=== PATIENT | male | born 1955 | race Caucasian/White ===

== ENCOUNTER → 2016-11-08 | Outpatient (CLI) | payer BC, OTHER ==
[~2016-11-08] MED LIST: ALBU17AE23 IH; CEPH500C PO; CICL6.1H4 IH; OXYC-12 PO
--- NOTE | 2016-11-08 13:30 | Diagnostic Imaging Report ---
PROCEDURE: CT abdomen and pelvis without contrast. TECHNIQUE: Multiple contiguous axial images were obtained through the abdomen and pelvis without the use of intravenous contrast. INDICATION: History of prostate cancer. COMPARISON: 10/29/2013. FINDINGS: Included views of the lung bases are clear. CT abdomen: There is asymmetric left renal atrophy. This has developed since the prior exam. Otherwise, the kidneys, spleen, pancreas, adrenal glands, and liver have an unremarkable noncontrast CT appearance. Small bowel loops are nondistended. Normal appendix is identified. There is no loculated fluid collection, free fluid, nor free air within the antrum. No abnormal mesenteric or retrotracheal adenopathy is seen. Bony structures show no acute abnormalities. There is mild calcified aortic and arterial atherosclerosis. CT pelvis: Urinary bladder is unopacified. No calculi are seen within urinary bladder. There is no loculated fluid collection, free fluid, nor free air within the pelvis. No abnormal lymph nodes are seen. Bony structures show no acute abnormalities. IMPRESSION: 1. Interval development of asymmetric left renal atrophy. 2. Otherwise, unremarkable CT abdomen and pelvis. Dictated by: Dictated on workstation # [id number]
--- NOTE | 2016-11-08 15:53 | Diagnostic Imaging Report ---
INDICATION: Prostate cancer EXAM: Whole body bone scan TECHNIQUE: 23.7 mCi of technetium 99m MDP was given intravenously. Whole body bone scan was obtained after an appropriate delay. FINDINGS: There is increased activity in the right first MTP joint which is likely degenerative or inflammatory. There is activity in both kidneys. There is no increased uptake in the skeletal system that is considered suspicious for metastatic disease. IMPRESSION: Whole body bone scan does not show any evidence for metastatic disease. Dictated by: Dictated on workstation # [id number]
== END ==
LOC: CARD 12:06
PROVIDERS: ATTEND Urology
DX: C61 Malignant neoplasm of prostate (principal); N26.1 Atrophy of kidney (terminal)
CPT/HCPCS: 74176; 78306

== ENCOUNTER 2016-12-14 15:00 | Outpatient (CLI) | payer BC | END 2016-12-14 15:30 | disposition home or self-care (01) | LOC: SLEEP 15:00 | PROVIDERS: ATTEND Nurse Practitioner Family | DX: G47.10 Hypersomnia, unspecified (principal); G47.50 Parasomnia, unspecified ==

== ENCOUNTER 2017-01-09 11:14 | Outpatient (RCR) | payer BC | END 2017-01-09 14:12 | disposition home or self-care (01) | DX: M54.2 Cervicalgia (principal) ==

== ENCOUNTER 2020-11-12 05:30 | Outpatient (RCR) | payer BC ==
[~2020-11-12] VITALS: Ht 177.8 cm; Wt 77.7 kg
[~2020-11-12 05:30] MED LIST changes: +ATOR10TA66 PO; +CHLO25TA22 PO; +DILT300C36 PO; +FLUT1BLS11 IH; +LOSA100T57 PO; +MONT10TA21 PO; +OMEP40CA6 PO
== END 2020-11-12 09:06 | disposition home or self-care (01) ==
LOC: PREOP 05:30
PROVIDERS: ATTEND Internal Medicine
DX: Z01.818 Encounter for other preprocedural examination (principal)
CPT/HCPCS: 87635

== ENCOUNTER → 2020-11-13 | Day surgery (SDC) | payer BC ==
--- NOTE | 2020-11-05 06:28 | HISTORY AND PHYSICAL ---
DATE OF SERVICE: COLONOSCOPY HISTORY AND PHYSICAL HISTORY OF PRESENT ILLNESS: The patient is a 65-year-old white male seen for yearly wellness evaluation. He had last accomplished screening colonoscopy 11 years ago, at which time there is no reported evidence for neoplasia. He is being set up for repeat screening colonoscopy. He is fully vaccinated for COVID. He reports that he has been generally feeling well. He is 10 years out from diagnosis of prostate cancer with no evidence for recurrence, status post prostatectomy. He has history of hypertension and no known history of cardiovascular disease. He has no past smoking history and no significant alcohol intake. He walks several miles on a daily basis with no past history of cardiovascular disease. He does have a history of mild intermittent asthma, well controlled on inhaler therapy with no significant wheezing, emergency room visits, cough or shortness of breath. PHYSICAL EXAMINATION: GENERAL: Reveals a white male who appears to be in no acute distress. VITAL SIGNS: Weight stable at 171.4 pounds, blood pressure 130/80. HEENT: Unremarkable. CHEST: Clear. CARDIOVASCULAR: Reveals regular rate and rhythm without murmur, S3 or S4. ABDOMEN: Soft, supple without mass, organomegaly or tenderness. EXTREMITIES: Reveal no cyanosis, clubbing or edema. SKIN: Evaluation reveals no suspicious nevi. FAMILY HISTORY: Father of pancreatic cancer at the age of 60 with alcohol use disorder. Mother is still living at 91 in reasonable health. He recently had a brother, he developed post-COVID cardiomyopathy, but is recovering nicely. ASSESSMENT AND PLAN: The patient is set up for screening colonoscopy, deemed to be of average risk. Prep instructions were given and questions were answered. Otherwise, stable wellness evaluation, good health habits, controlled asthma, hypertension and no evidence for recurrence of prostate cancer 10 years out from prostatectomy. We will see him back in 6 months. Job ID: [id number] DocumentID: [id number] Dictated Date: 10/28/2020 16:13:37 Skein Winder Date: 10/28/2020 16:48:17 Dictated By: CÉSAR FERGUSON MD
[~2020-11-13] VITALS: Ht 177.8 cm; Wt 77.7 kg
[~2020-11-13] MED LIST changes: +HURRICAINE EXT TUBE (BENZOCAINE) XX PRN; +LACTATED RINGERS 1,000 ML IV ONE; +LACTATED RINGERS 1,000 ML IV STA; +PROPOFOL INJECTION 50 ML IV ONE
[2020-11-13 08:21] VITALS: BP 166/95
[2020-11-13] MEDS: LIDOCAINE JELLY 2% 6 ML SYRINGE MM PRN ×2 (09:40→09:50)
[2020-11-13 10:10] VITALS: BP 108/62
[2020-11-13 10:15] VITALS: BP 117/66
[2020-11-13 10:20] VITALS: BP 125/78
--- NOTE | 2020-11-13 10:33 | Anesthesia-General Post-Op ---
MAC Patient Condition Mental Status/LOC: Same as Preop Cardiovascular: Satisfactory Nausea/Vomiting: Absent Respiratory: Satisfactory Pain: Controlled Complications: Absent Post Op Complications Complications None Follow Up Care/Instructions Patient Instructions None needed. Anesthesiology Discharge Order Discharge Order Patient is doing well, no complaints, stable vital signs, no apparent adverse anesthesia problems. No complications reported per nursing. URSULA NAVA CRNA Nov 13, 2020 10:33
[2020-11-13 10:45] VITALS: BP 155/96
[2020-11-13 10:49] VITALS: BP 155/96
--- NOTE | 2020-11-13 15:52 | OPERATIVE REPORT ---
DATE OF SERVICE: PANENDOSCOPY SUMMARY PRIMARY CARE PHYSICIAN: César Ferguson MD. INDICATION: EGD was done for evaluation of reflux symptoms at times refractory to PPI therapy with screening colonoscopy. DESCRIPTION OF PROCEDURE: The patient was placed in the left lateral decubitus position. The endoscope was inserted into the oral cavity and under direct visualization, the esophagus was intubated. The endoscope was passed down the esophagus through stomach in the second portion of the duodenum. Careful inspection was made as the endoscope was withdrawn. FINDINGS: The posterior pharynx, epiglottis and true and false vocal folds were unremarkable to visual inspection. The proximal, mid and distal esophagus were unremarkable, say for a small hiatal hernia. There was no evidence to suggest erosive esophagitis or overt Chapin's change. Biopsies were obtained from the GE junction and submitted for histopathology. The cardia, fundus, antrum, pylorus, pyloric channel, duodenal bulb and second portion of the duodenum were unremarkable. ASSESSMENT: Small hiatal hernia was present without evidence for erosive esophagitis or gross evidence to suggest Chapin's. Biopsies from the Z line are pending at the time of dictation. No other abnormalities noted on ED evaluation. COLONOSCOPY: We then proceeded with colonoscopy. Digital evaluation was performed. There was surgical absence of the prostate with no palpable abnormalities noted in the prostate bed or elsewhere in the anal canal or distal rectal vault. Anal sphincter tone was normal and the perianal reflexes intact. The colonoscope was then inserted into the rectum and under direct visualization advanced to the cecum. The cecum was identified by identification of ileocecal valve and cecal strap. Photographic documentation was obtained. Quality of the prep was good. FINDINGS: There was no evidence for internal or external hemorrhoids and the rectum was unremarkable. Mild diverticular disease confined to the sigmoid colon was present without evidence for diverticulitis. No other sigmoid colonic abnormalities were appreciated. The descending colon and splenic flexure were unremarkable. Present in the distal transverse colon as well as proximal ascending colon were two small sessile 3 to 4 mm polyps, both were biopsied and ablated and submitted for histopathology. There was no subsequent blood loss. The cecum and the colon were unremarkable. ASSESSMENT: Two diminutive polyps were removed today, one from the distal transverse colon and one from the proximal ascending colon. As long as there are no surprises on histopathology report, I would just be advocating consideration for repeat screening colonoscopy in 10 years. Mild diverticular disease confined to the sigmoid colon was present without evidence for diverticulitis. Job ID: [id number] DocumentID: [id number] Dictated Date: 11/13/2020 10:55:07 Maintenance Advisor Date: 11/13/2020 15:51:44 Dictated By: CÉSAR FERGUSON MD MTDD
== END ==
LOC: ENDO 08:01
PROVIDERS: ATTEND Internal Medicine
DX: Z12.11 Encounter for screening for malignant neoplasm of colon (principal); D12.2 Benign neoplasm of ascending colon; K63.5 Polyp of colon; K21.00 Gastro-esophageal reflux disease with esophagitis, without bleeding; I10 Essential (primary) hypertension; K44.9 Diaphragmatic hernia without obstruction or gangrene; K57.30 Diverticulosis of large intestine without perforation or abscess without bleeding; E78.5 Hyperlipidemia, unspecified; Z85.46 Personal history of malignant neoplasm of prostate; Z90.79 Acquired absence of other genital organ(s); Z79.899 Other long term (current) drug therapy; Z80.0 Family history of malignant neoplasm of digestive organs
CPT/HCPCS: 88305; 88312

== ENCOUNTER → 2022-01-12 | Outpatient (CLI) | payer BC, MEDICARE ==
[~2022-01-12] MED LIST changes: -HURRICAINE EXT TUBE (BENZOCAINE) XX PRN; -LACTATED RINGERS 1,000 ML IV ONE; -LACTATED RINGERS 1,000 ML IV STA; -PROPOFOL INJECTION 50 ML IV ONE
--- NOTE | 2022-01-12 18:51 | Diagnostic Imaging Report ---
PROCEDURE: MRI lumbar spine, without contrast, 01/12/2022. TECHNIQUE: Multiplanar, multisequence MRI of the lumbar spine was performed without contrast. INDICATION: Chronic low back pain. COMPARISON: None. FINDINGS: There is normal height and alignment of the vertebral bodies. No acute fracture is appreciated. Tip of the conus unremarkable in appearance and location. T12-L1: There is disc desiccation with a broad-based bulging disc. There is bilateral facet hypertrophy. There is no significant central stenosis. Neural foramina patent. L1-L2: There is intervertebral disc space narrowing, disc desiccation with a left paracentral broad-based bulging disc. There is bilateral facet hypertrophy. There is moderate central stenosis with narrowing of the left lateral recess, likely encroaching the transiting left nerve root. Moderate left and [id number] right neural foraminal stenosis is noted. There is heterogeneity within the central canal posterior to the L1-L2 and L2-L3 levels, likely crowding of the nerve root secondary to the central narrowing. A focal arachnoiditis felt to be less likely but correlate with symptoms. L2-L3: There is intervertebral disc space narrowing, disc desiccation with a broad-based bulging disc. There is bilateral facet and ligamentum flavum hypertrophy. There is moderate to severe central stenosis with narrowing of the lateral recesses bilaterally. There is moderate to severe bilateral neural foraminal stenosis. L3-L4: There is intervertebral disc space narrowing, disc desiccation and a left paracentral broad-based disc extrusion. There is bilateral facet and ligamentum flavum hypertrophy with severe central stenosis. There is marked narrowing of the lateral recesses, left worse than right. There is severe left and moderate to severe right neural foraminal stenosis. L4-L5: There is intervertebral disc space narrowing and disc desiccation with a broad-based bulging disc. There is bilateral facet and ligamentum flavum hypertrophy. Findings cause moderate to almost severe central stenosis with narrowing of the lateral recesses bilaterally. There is severe bilateral neural foraminal stenosis, slightly worse on the right. L5-S1: There is disc desiccation with a broad-based central disc protrusion. There is bilateral facet and ligamentum flavum hypertrophy. There is secondary mild to moderate central stenosis with mild narrowing of the lateral recesses bilaterally. There is moderate to severe bilateral neural foraminal stenosis. Visualized intraabdominal structures demonstrate atrophy of the left kidney, age indeterminant. No acute abnormalities appreciated. IMPRESSION: 1. Moderate to severe central stenosis at L2-L3 with severe central narrowing at L3-L4 and multilevel areas of moderate to severe neural foraminal stenosis as detailed above. 2. Heterogeneous hypointensities within the central canal in the upper lumbar spine, most likely clumping of the vessels secondary to these areas of severe central stenosis. Arachnoiditis felt to be unlikely but clinical correlation with symptoms recommended. 3. Marked atrophy of the left kidney. Dictated by: Dictated on workstation # [id number]
== END ==
LOC: RAD 13:15
PROVIDERS: ATTEND Internal Medicine
DX: M48.061 Spinal stenosis, lumbar region without neurogenic claudication (principal); N26.1 Atrophy of kidney (terminal); M51.25 Other intervertebral disc displacement, thoracolumbar region; M51.26 Other intervertebral disc displacement, lumbar region
CPT/HCPCS: 72148

== ENCOUNTER → 2022-10-05 | Outpatient (CLI) | payer MEDICARE ==
[~2022-10-05] MED LIST changes: -LOSA100T57 PO; +LOSA100T58 PO; +MONT-47 PO; -MONT10TA21 PO
--- NOTE | 2022-10-05 17:28 | Diagnostic Imaging Report ---
CLINICAL INDICATION: Patient with spondylosis with myelopathy. Patient with low back pain. Patient with degenerative disk disease radiculopathy and neurogenic claudication. EXAM: MRI of the lumbar spine without contrast. Sequences include sagittal T2, sagittal T1, sagittal T2 fat-sat, and axial T2. COMPARISON: MRI of the lumbar spine without contrast dated 01/12/2022. FINDINGS: There is no acute lumbar spine fracture or dislocation. There is tortuosity involving the cauda equina nerve roots again seen above the L2-L3 disk space region related to severe central canal stenosis. Conus medullaris tip is not seen below the L1-L2 disk space region. There are hypertrophic spurs seen throughout the lumbar spine and facet arthropathy. T12-L1: Stable mild diffuse disk bulge. There is moderate loss of disk space height. There is mild bilateral facet arthropathy. Stable mild central canal narrowing. There is no significant neural foramen narrowing. L1-L2: There is slight increased size of the diffuse disk bulge with superimposed left paracentral/subarticular disk herniation component. There is moderate loss of disk space height. Stable moderate to severe central canal canal stenosis which has slightly progressed. There is stable severe left neural foramen narrowing and no significant right neural foramen narrowing. L2-L3: There is a diffuse disk bulge with moderate to severe loss of disk space height again seen. There is stable severe bilateral neural foramen narrowing. There is stable severe central canal stenosis. There is severe bilateral facet arthropathy ligament flavum buckling. L3-L4: Stable diffuse disk bulge with superimposed disk extrusion/herniation posteriorly. There are stable severe central canal stenosis with complete effacement of the thecal sac. There is stable severe bilateral neural foramen narrowing with the left side more than the right. There is stable moderate to severe loss of disk space height. L4-L5: There is a diffuse disk bulge with moderate loss of disk space height. There is moderate bilateral facet arthropathy. There is stable moderate to severe central canal stenosis and severe bilateral neural foramen narrowing. L5-S1: There is stable diffuse disk bulge with stable moderate to severe right neural foramen narrowing and moderate left neural foramen narrowing. There is no significant central canal stenosis. There is moderate bilateral facet arthropathy/hypertrophy. IMPRESSION: 1: There is slight progression of disk disease at the L1-L2 level. 2: Otherwise, there is stable severe multilevel lumbar spine degenerative disk disease, as described above. Dictated by: Dictated on workstation # [id number]
== END ==
LOC: RAD 12:52
PROVIDERS: ATTEND Neurological Surgery
DX: M48.062 Spinal stenosis, lumbar region with neurogenic claudication (principal); M47.26 Other spondylosis with radiculopathy, lumbar region; M51.16 Intervertebral disc disorders with radiculopathy, lumbar region; M48.061 Spinal stenosis, lumbar region without neurogenic claudication; M46.06 Spinal enthesopathy, lumbar region; M51.25 Other intervertebral disc displacement, thoracolumbar region; M48.05 Spinal stenosis, thoracolumbar region; M48.07 Spinal stenosis, lumbosacral region; M51.27 Other intervertebral disc displacement, lumbosacral region
CPT/HCPCS: 72148